=== PATIENT | male | born 1990 | race Caucasian/White ===

== ENCOUNTER 2017-03-01 04:56 | Emergency (ER) | payer BC ==
[2017-03-01] MEDS ORDERED: IBUPROFEN 400 MG TABLET (FP) PO ONE ×2 (05:19→05:23)
--- NOTE | 2017-03-01 05:20 | PDOC ---
History of Present Illness - General History Source: Patient Exam Limitations: No Limitations - History of Present Illness Initial Comments: 03/01/17 05:25 The patient is a 26 year old male with no significant past medical history, who presents to the ER with left ankle swelling and pain for 5 hours. Patient states he was playing soccer at midnight and believes he sprained his left ankle. He reports icing, elevating, and compressing the area. Patient admits he woke up later this night with more pain and an inability to bear any weight on the left leg. Denies loss of consciousness Denies head or neck trauma Denies weakness, numbness, or paresthesia Denies nausea, vomiting Allergies: NKDA <Lady Siddiqui - Last Filed: 03/01/17 05:25> - General History Source: Patient <Jj Hudson - Last Filed: 03/01/17 06:34> - General Stated Complaint: PAIN,LT ANKLE Time Seen by Provider: 03/01/17 05:19 Past History <Lady Siddiqui - Last Filed: 03/01/17 05:25> <Jj Hudson - Last Filed: 03/01/17 06:34> - Past Medical History Allergies/Adverse Reactions: Allergies Allergy/AdvReac Type Severity Reaction Status Date / Time No Known Allergies Allergy Verified 03/01/17 05:38 Home Medications: Ambulatory Orders Ibuprofen 800 mg PO TID #30 tablet 03/01/17 Review of Systems - Review of Systems Comments:: 03/01/17 05:25 CONSTITUTIONAL: Absent: fever, no chills, no fatigue EYES: Absent: visual changes ENT: Absent: ear pain, no sore throat CARDIOVASCULAR: Absent: chest pain, no palpitations RESPIRATORY: Absent: cough, no SOB GI: Absent: abdominal pain, no nausea, no vomiting, no constipation, no diarrhea GENITOURINARY: Absent: dysuria, no frequency, no hematuria MUSCULOSKELETAL: Present: left ankle pain and swelling Absent: back pain, no arthralgia, no myalgia SKIN: Absent: rash NEURO: Absent: headache <Uts,Lady - Last Filed: 03/01/17 05:25> *Physical Exam - Physical Exam Comments: 03/01/17 05:25 GENERAL: Well-appearing, well-nourished. No apparent distress. HEENT: Normocephalic, atraumatic. PERRL, EOM intact. CARDIOVASCULAR: Normal S1, S2. Regular rate and rhythm. PULMONARY: Clear to auscultation bilaterally. ABDOMEN: Soft, non-distended, non-tender. EXTREMITIES: Swelling in the soft tissue of the left lateral mallelous and dorsum of left ankle. Decreased range of motion secondary to pain. SKIN: Warm, dry. No rash NEUROLOGICAL: No focal neurological deficits. <Lady Siddiqui - Last Filed: 03/01/17 05:25> Medical Decision Making - Medical Decision Making 03/01/17 06:05 Dr. Hudson: The scribe's documentation has been prepared under my direction and personally reviewed by me in its entirery. I confirm that the note above accurately reflects all work, treatment, procedures, and medical decision making performed by me. <Jj Hudson - Last Filed: 03/01/17 06:34> *DC/Admit/Observation/Transfer - Attestations Scribe Attestion: 03/01/17 05:31 Documentation prepared by Lady Siddiqui, acting as medical practice manager for Jj Hudson DO. <Lady Siddiqui - Last Filed: 03/01/17 05:25> - Discharge Dispostion Admit: No <Jj Hudson - Last Filed: 03/01/17 06:34> Diagnosis at time of Disposition: Left ankle sprain Qualifiers: Encounter type: initial encounter Involved ligament of ankle: other ligament Qualified Code(s): S93.492A - Sprain of other ligament of left ankle, initial encounter - Discharge Dispostion Disposition: HOME Condition at time of disposition: Stable - Prescriptions Prescriptions: Ibuprofen 800 mg PO TID #30 tablet - Referrals Referrals: Alex Garcia MD [Staff Physician] - - Patient Instructions Printed Discharge Instructions: DI for Ankle Sprain, How to Use Crutches Additional Instructions: REst, ice, elevate leg as much as possible. Crutches for ambulation until you feels better. Take medication as directed - Post Discharge Activity Work/School Note: Back to Work
[2017-03-01 05:36] VITALS: BP 120/75; PULSE 89; TEMP 99.2; BMI 29.6
== END 2017-03-01 06:18 | disposition home or self-care (01) ==
LOC: JER 04:56
DX: S93.492A Sprain of other ligament of left ankle, initial encounter (principal); X58.XXXA Exposure to other specified factors, initial encounter; Y93.66 Activity, soccer; Y92.322 Soccer field as the place of occurrence of the external cause
CPT/HCPCS: 73610-TC-LT; 73630-TC-LT; 99283-25